=== PATIENT | female | born 1960 | race Caucasian/White ===

== ENCOUNTER → 2017-06-08 | Outpatient (CLI) | payer BC ==
[~2017-06-08] MED LIST: ASPI325T45 PO; CIPR-255 PO; MULT-506 PO; SERT100T PO
--- NOTE | 2017-06-11 07:43 | MAMMOGRAPHY REPORT ---
BILATERAL DIGITAL SCREENING MAMMOGRAM TOMOSYNTHESIS WITH CAD: 06/08/2017 CLINICAL HISTORY: Routine screening. Patient has no complaints. TECHNIQUE: Breast tomosynthesis in addition to standard 2D mammography was performed. Current study was also evaluated with a Computer Aided Detection (CAD) system. COMPARISON: Comparison is made to exams dated: 06/06/2016 mammogram, 06/03/2015 mammogram, 06/02/2014 m ammogram, 03/17/2013 mammogram, 03/08/2012 mammogram, and 03/07/2011 mammogram - [facility] [address]ter. BREAST COMPOSITION: The tissue of both breasts is heterogeneously dense, which may obscure small mas ses. FINDINGS: No suspicious masses, calcifications, or areas of architectural distortion are noted in ei ther breast. There has been no significant interval change compared to prior exams. A biopsy marker clip is again noted in the left central breast. Asymmetry in the right inferior breast is stable rachana ing back to at least the 2006 exam. IMPRESSION: ACR BI-RADS CATEGORY 2: BENIGN There is no mammographic evidence of malignancy. A 1 year screening mammogram is recommended. The pa tient will receive written notification of the results. Approximately 10% of breast cancers are not detected with mammography. A negative mammographic report should not delay biopsy if a clinically suggestive mass is present. Consuelo Oliveros M.D. /:06/08/2017 15:54:59 Jail Keeper: Bonnie Scott [facility] letter sent: Normal 1/2 BI-RADS Code: ACR BI-RADS Category 2: Benign
== END | disposition home or self-care (01) ==
LOC: C.MAMM 08:32
PROVIDERS: ATTEND Obstetrics & Gynecology
DX: Z12.31 Encounter for screening mammogram for malignant neoplasm of breast (principal)

== ENCOUNTER → 2017-07-06 | Outpatient (CLI) | payer BC ==
--- NOTE | 2017-07-06 13:19 | DIAGNOSTIC IMAGING REPORT ---
CT SCAN OF THE ABDOMEN AND PELVIS WITHOUT IV CONTRAST CLINICAL HISTORY: Left lower quadrant abdominal pain. COMPARISON STUDY: Abdominal CT dated 05/14/2016. TECHNIQUE: CT scan of the abdomen and pelvis is performed from the lung bases to the proximal femora. Images are reviewed in the axial, sagittal, and coronal planes. IV contrast was not administered for this examination as per the referring clinician. Note that the examination was performed in suboptimal fashion without oral and IV contrast. Automated dose control exposure was utilized. CT DOSE: 531.32 mGy.cm FINDINGS: Lung bases: The heart is normal in size and without pericardial effusion. The lung bases are clear noting minimal bibasilar atelectasis. There is a small hiatal hernia. Liver: The unenhanced liver is normal in size, contour, and attenuation. There is mild central intrahepatic biliary ductal dilatation, likely related to previous cholecystectomy. Gallbladder: Surgically absent noting clips in the gallbladder fossa. Spleen: Normal in size and attenuation. Pancreas: Unremarkable. Adrenal glands: Unremarkable. Kidneys: The unenhanced kidneys demonstrate mild cortical atrophy and are without hydronephrosis. There are no renal calculi identified. There is no evidence of contour deforming renal mass lesion. Abdominal vasculature: The abdominal aorta is normal in course and caliber. Bowel: The small bowel and colon are normal in course and caliber. There is moderate diverticulosis of the left colon. There is wall thickening with pericolonic infiltration and trace pericolonic fluid seen involving the proximal sigmoid colon in the left lower quadrant consistent with acute diverticulitis. There is no evidence of diverticular abscess. The appendix is well-visualized and normal. Peritoneum: No intraperitoneal free air or abdominal ascites is seen. There is a small fat-containing umbilical hernia. Lymphadenopathy: None. Pelvic viscera: The bladder and uterus are normal as visualized. A 1.5 cm cystic focus in the right ovary has not significantly change from prior studies and is of doubtful significance. No concerning adnexal lesion is seen. Calcified phleboliths are seen in the pelvis. Skeletal structures: No lytic or blastic lesions are seen. There is minimal lumbosacral spondylosis. IMPRESSION: 1. Suboptimal examination without oral and IV contrast. 2. Findings are consistent with acute diverticulitis of the sigmoid colon. There is no intraperitoneal free air and no evidence of diverticular abscess on this unenhanced examination. 3. Additional findings as above. Electronically signed by: Keenan Elena M.D. 07/06/2017 1:18 PM Dictated Date/Time: 07/06/2017 1:14 PM
== END | disposition home or self-care (01) ==
LOC: C.CTS 12:39
PROVIDERS: ATTEND Colon & Rectal Surgery
DX: K57.30 Diverticulosis of large intestine without perforation or abscess without bleeding (principal)

== ENCOUNTER → 2017-10-08 | Outpatient (CLI) | payer BC ==
[~2017-10-08] MED LIST changes: +AMOX1TAB43 PO; -ASPI325T45 PO; -CIPR-255 PO; +OPTIRAY 320 IV PRN
[2017-10-08 10:53] LABS: BASO % 0.4 %; BASO ABS # 0.02 K/uL (0-0.2); COMPLETE YES; HEMATOCRIT 39.4 % (37-47); IG% 0.2 %; LYMPH % 34.1 %; LYMPH ABS # 1.65 K/uL (1.2-3.4); MEAN CELL VOLUME 90.4 fL (80-100); MEAN CORPUSCULAR HGB CONC 34.3 g/dl (32-36); MEAN PLATELET VOLUME 9.5 fL (7.4-10.4); NEUT % 59.3 %; PLATELET COUNT 232 K/uL (130-400); RED BLOOD COUNT 4.36 M/uL (4.2-5.4); WHITE BLOOD COUNT 4.84 K/uL (4.8-10.8)
[2017-10-08 11:00] LABS: ALT/SGPT 20 U/L (12-78); BLOOD UREA NITROGEN 18 mg/dl (7-18); BUN/CREATININE RATIO 22.7 (10-20); CALCIUM 9.1 mg/dl (8.5-10.1); CARBON DIOXIDE 25 mmol/L (21-32); CHLORIDE 105 mmol/L (98-107); CREATININE 0.79 mg/dl (0.60-1.20); GLUCOSE 94 mg/dl (70-99); POTASSIUM 3.9 mmol/L (3.5-5.1); SODIUM 137 mmol/L (136-145)
[2017-10-08 11:01] LABS: PARTIAL THROMBOPLASTIN RATIO 1.2; PROTHROMBIN TIME (PATIENT) 10.8 SECONDS (9.0-12.0)
[2017-10-08 11:03] LABS: ALKALINE PHOSPHATASE 69 U/L (45-117); AST/SGOT 16 U/L (15-37)
--- NOTE | 2017-10-08 11:56 | DIAGNOSTIC IMAGING REPORT ---
CHEST CT WITH CONTRAST CT DOSE: 347.25 mGycm HISTORY: Left lower lobe groundglass opacities seen on comparison study. Follow-up exam. R91.8 Ground glass opacity present on imaging of lungFurther lele TECHNIQUE: Multiaxial CT images of the chest were performed following the intravenous administration of contrast. A dose lowering technique was utilized adhering to the principles of ALARA. COMPARISON: The abdomen and pelvis 09/05/2017, 07/06/2017 and 05/14/2016. CT chest 01/15/2011. FINDINGS: Thyroid is homogeneous. No pathologic adenopathy identified. Heart is normal in size without pericardial effusion. Thoracic aorta is normal in course and caliber without dissection or aneurysm. The opacified pulmonary arterial tree is unremarkable. There is no pneumothorax or pleural effusion. 2.4 x 1.4 cm groundglass opacity of the basal left lower lobe as seen on image 231 of series 4 is unchanged dating back to CT study 07/06/2017, however has progressed from 05/14/2016. Subtle areas of linear subsegmental opacities are present within this distribution as well as within additional sites within the bilateral lower lobes suggesting areas of mild pleural parenchymal scarring with atelectasis. No lobar airspace consolidations or additional groundglass opacity is identified. 3 mm solid pulmonary nodule seen within the apical posterior segment left upper lobe, image 57 of series 4. This is likely benign. 2 mm solid nodule right lower lobe as seen on image 204 of series 4. Central airways are patent. Prior cholecystectomy. No acute abnormality of the imaged upper abdomen. Soft tissues are unremarkable. The bones appear intact. IMPRESSION: 1. 2.4 x 1.4 cm groundglass opacity of the basal left lower lobe as above is unchanged dating back to 07/06/2017, however has progressed from study dated 05/14/2016. This suggests atelectasis with adjacent pleural parenchymal scarring. As a precautionary measure, a six-month follow-up CT chest may be considered. 2. No acute intrathoracic abnormality identified. Electronically signed by: Jonnie Robertson M.D. 10/08/2017 11:55 AM Dictated Date/Time: 10/08/2017 11:47 AM
== END | disposition home or self-care (01) ==
LOC: C.CTS 09:58
PROVIDERS: ATTEND Internal Medicine Critical Care Medicine
DX: R91.8 Other nonspecific abnormal finding of lung field (principal)

== ENCOUNTER 2017-10-17 11:03 | Observation (INO) | payer BC ==
[~2017-10-17] VITALS: Ht 165.1 cm; Wt 73.7 kg
[~2017-10-17 11:03] MED LIST changes: -ACETAMINOPHEN 325 MG TAB PO PRN; -ALUMINUM/MAGNESIUM/SIMETH (MAALOX MAX) 30 ML UDC PO PRN; -ENOXAPARIN 40 MG/0.4 ML SYR SC SCH; -FENTANYL CITRATE INJ 50 MCG/1 ML 2 ML VIAL IV ONE; -FENTANYL CITRATE INJ 50 MCG/1 ML 2 ML VIAL IV SCH; -LIDOCAINE 4% INH SOLN 4 ML BTL ONE; -LIDOCAINE HCL 2% LOCAL 50ML VIAL INFIL ONE; -MAGNESIUM HYDROXIDE SUSP 30 ML UDC PO PRN; -MIDAZOLAM HCL 5 MG/ML 1 ML VIAL IV ONE; -MIDAZOLAM HCL 5 MG/ML 1 ML VIAL IV SCH; -NURSING VERBAL MED ORDER ONE; -ONDANSETRON INJ 2 MG/ML 2 ML VIAL IV PRN; -ONDANSETRON INJ 2 MG/ML 2 ML VIAL ONE; -PANTOprazole SOD 40 MG TAB PO SCH; -POLYETHYLENE (MIRALAX) 17 GM PACK PO PRN; -SERT50TA PO; -ZOLPIDEM TARTRATE 5 MG TAB PO PRN
[2017-10-17] MEDS ORDERED: IV FLUIDS COMPLETED PRN ×2 (12:45→16:00)
[2017-10-17] MEDS ORDERED: POLYETHYLENE (MIRALAX) 17 GM PACK PO PRN (14:15)
[2017-10-17] MEDS ORDERED: ONDANSETRON INJ 2 MG/ML 2 ML VIAL IV PRN ×2 (14:15→19:45)
[2017-10-17] MEDS ORDERED: ACETAMINOPHEN 325 MG TAB PO PRN (14:15)
--- NOTE | 2017-10-17 14:15 | History and Physical ---
History & Physical Date of Service Oct 17, 2017. History & Physical [place] [address] History and Physical Patient Name: LEATHA MCKAY Admit Date: 10/17/17 [facility] Rec: [id number] Att Phy: Nasir Oliva MD Acct ID: [id number] [place] Phy: Chris Connelly M.D. Date: 1960 Fam Phy: Chris Connelly M.D. Age: 57 Location: [facility] Sex: F Room/Bed: CC: Fouzia Keating, Ronni aHrry MD, PhD Chris Connelly M.D. *NOTICE TO RECEIVING LIBERTARIAN/AGENCY This information is strictly Confidential and protected under [place] law. [place] law prohibits you from making any further disclosure of this information unless further disclosure is expressly permitted by the written consent of the person to whom it pertains or is authorized by law. A general authorization for the release of medical or other information is not sufficient for this purpose. Hospital accepts no responsibility if the information is made available to any other person, INCLUDING THE PATIENT. History & Physical Date & Time of Service: Oct 17, 2017 at 11:54 Chief Complaint: Ground Glass Opacity Present On Lung Imaging Primary Care Physician: Chris Connelly M.D. History of Present Illness Source: patient This is a 57 yo F with PMHx of pulmonary nodules, basal cell carcinoma lesion of the nose s/p removal, hx of diverticulitis in Aug 2017 who presented for routine bronchoscopy in same day surgery for evaluation of ground-glass nodule/ atypical infection of the LLL by Dr. Oliva on 10/17. Pt underwent the procedure with conscious sedation with fentanyl and versed and tolerated it without difficulty. While in the post op bay the pt developed chest pain in the lower substernal region, she began dry heaving and felt as if she were to pass out. She reports feeling numbness and tingling into her hands and feet at that time. The The patient developed episode of bradycardia into the 30s, and BP dropped acutely to 70/40. A code purple was called and the patient was taken acutely to the ER for intervention. The patient is being admitted directly to the hospitalist service at this time for observation. At this time the patient feels well, is fully awake and able to provide some history. She currently denies any chest pain at all. Pt reports she has had a chest pain like this in the past where she has been eating poorly. Pt notes she has taken a 1 week break from weight watchers and has been eating fast food like [employer] and stromboli, which she typically does not. Pt is not on any antacid medications. Of note, pt denies environmental exposures such as secondhand smoke, fumes, asbestos. notes they recently tested radon and the level in their home is 4x the limit so are planning on installing a pump. While in the ER vitals have remained normal. Labs are in process, including cardiac biomarkers EKG was reviewed and appears to be in NSR without evident block. Past Medical/Surgical History Medical Problems: (1) Chemosis of conjunctiva Status: Resolved (2) Corneal abrasion Status: Resolved (3) Diverticulitis Status: Resolved (4) Diverticulosis Colon (W/O Ment Of Hemorrhage) Status: Chronic Acute cholecystitis History of Cervical polyp Depression basal cell carcinoma of the nose History of dyspareunia History of vaginitis History of Menopausal symptoms Surgical Problems: (1) History of cholecystectomy Status: Resolved Left bronchoscopy and lavage Family History Heart Disease Hypertension Stroke Syndrome Breast Cancer Social History Smoking Status: Never Smoker Smokeless Tobacco Use: No Alcohol Use: socially Drug Use: none Marital Status: Housing status: lives with family Occupational Status: retired (meteorologist) Immunizations History of Influenza Vaccine: Yes Influenza Vaccine Date: Sep 23, 2012 History of Tetanus Vaccine?: Yes Tetanus Immunization Date: Nov 26, 2009 History of Pneumococcal: Unknown History of Hepatitis B Vaccine: Unknown Multi-Drug Resistant Organisms History of MDRO: No Allergies Coded Allergies: No Known Allergies (Unverified , 10/17/17) Home Medications Scheduled Multivitamin (Multivitamin), 1 TAB PO DAILY Sertraline Hcl (Zoloft), 50 MG PO DAILY Review of Systems Constitutional: No fever, No chills, No sweats, No weight loss, No fatigue Eyes: No worsening of vision, No redness ENT: No nasal symptoms, No sore throat, No tinnitus Respiratory: No cough, No sputum, No wheezing, No shortness of breath, No dyspnea on exertion Cardiovascular: No chest pain, No orthopnea, No edema, No palpitations Abdomen: No pain, No nausea, No vomiting, No diarrhea, No constipation Musculoskeletal: No joint pain, No swelling Neurologic: No weakness, No numbness/tingling Psychiatric: No depression symptoms, No anxiety Endocrine: No fatigue Integumentary: No rash, No itch Physical Exam Vital Signs Date Time Temp Pulse Resp B/P (MAP) Pulse Ox O2 Delivery O2 Flow Rate FiO2 10/17/17 10:45 36.6 39 14 72/38 99 Nasal Cannula 6 10/17/17 10:30 36.6 75 20 124/77 99 Nasal Cannula 4.0 10/17/17 10:15 36.6 74 20 119/76 98 Nasal Cannula 4.0 10/17/17 10:05 80 21 118/83 97 Nasal Cannula 4.0 10/17/17 10:00 71 22 111/72 98 Mask 8.0 10/17/17 09:55 72 14 127/83 94 Mask 8.0 10/17/17 09:50 67 17 95/81 98 Mask 8.0 10/17/17 09:34 75 21 106/66 100 Mask 8.0 10/17/17 09:21 36.4 77 18 115/66 97 Room Air 10/17/17 08:03 36.7 73 16 115/66 (82) 97 Room Air General Appearance: WD/WN, no apparent distress Head: normocephalic, atraumatic Eyes: PERRL, EOMI ENT: hearing grossly normal, pharynx normal Neck: no adenopathy, no JVD Respiratory/Chest: chest non-tender, lungs clear, no respiratory distress, no accessory muscle use, + pertinent finding (on 4L via NC with adequate sats) Cardiovascular: regular rate, rhythm, no JVD, no murmur, normal peripheral pulses Abdomen/GI: normal bowel sounds, non tender, soft, + pertinent finding (no epigastric pain ) Back: normal inspection, no CVA tenderness Extremities/Musculoskelatal: no calf tenderness, no pedal edema Neurologic/Psych: alert, normal mood/affect, oriented x 3 Skin: normal color, warm/dry Diagnostics Laboratory Results Results Past 24 Hours Test 10/17/17 08:26 10/17/17 10:49 10/17/17 11:02 10/17/17 11:41 Range/Units Bedside Glucose 99 70-90 mg/dl Bedside Hemoglobin 11.6 12.0-16.0 g/dl Bedside Hematocrit 34 37-47 % Bedside Blood Gas pH (LAB) 7.55 7.35-7.45 Bedside Blood Gas pCO2 (LAB) 25 35-46 mmHg Bedside Blood Gas pO2 (LAB) 134 80-95 mmHg Bedside Blood Gas HCO3 (LAB) 21 19-24 meq/L Bedside Blood Gas Total CO2 22 24-31 mEq/l Bedside Blood Gas Base Excess (LAB) -1.0 -9-1.8 meq/L Bedside Blood Gas O2 Saturation 99.0 90-95 % Bedside Sodium 140 135-144 mEq/L Bedside Potassium 3.9 3.3-5.0 mEq/L Creatine Kinase MB Ratio 0-3.0 Microbiology Results 10/17/17 Fungal Smear, Received Pending 10/17/17 Fungal Culture, Received Pending 10/17/17 Acid Fast Stain, Received Pending 10/17/17 Mycobacterial Culture, Received Pending 10/17/17 Gram Stain, Received Pending 10/17/17 Bronchoalveolar Lavage Culture, Received Pending Diagnostic Radiology CHEST ONE VIEW PORTABLE CLINICAL HISTORY: Chest pain post bronchoscopy. COMPARISON STUDY: Chest CT October 08, 2017. FINDINGS: Lung volumes are normal. No pneumothorax or pleural effusion is present. No consolidation is identified. Pulmonary vascularity is normal. Cardiomediastinal silhouette is normal. Mild left lower lung retrocardiac opacity at site of airspace opacity shown on exam of October 08, 2017 is present. IMPRESSION: 1. No pneumothorax. 2. Mild left lower lung airspace opacity, as shown on CT of October 08, 2017. Electronically signed by: Issa Molina M.D. 10/17/2017 11:58 AM Dictated Date/Time: 10/17/2017 11:53 AM Impression Assessment and Plan This is a 57 yo F with PMHx of pulmonary nodules, basal cell carcinoma lesion of the nose s/p removal, hx of diverticulitis in Aug 2017 who presented for routine bronchoscopy in same day surgery for evaluation of ground-glass nodule/ atypical infection of the LLL by Dr. Oliva on 10/17. Pt underwent the procedure with conscious sedation with fentanyl and versed and tolerated it without difficulty. While in the post op bay the pt developed chest pain in the lower substernal region, she began dry heaving and felt as if she were to pass out. She reports feeling numbness and tingling into her hands and feet at that time. The The patient developed episode of bradycardia into the 30s, and BP dropped acutely to 70/40. A code purple was called and the patient was taken acutely to the ER for intervention. The patient is being admitted directly to the hospitalist service at this time for observation. S/p episode of chest pain after Bronchoscopy and LLL lavage - Cardiac enzyme in process, trend x 3 total - EKG reviewed and showing NSR without acute signs of ischemia of ST wave inversions - cardiology has seen the patient - appreciate recs - Chest is nontender with palpation at time of my eval. - Etiology sounds vasovagal with bronchoscopy and tolerating the procedure itself without difficulty. Possible that this was bronchospasm as well. - Pt reports hx of eating poorly x 1 week and notes she has had similar episode of chest pain in the past when she does not eat well. - Will add antacid with protonix for possible indigestion - health eating habits will need to be encouraged prior to discharge. - CXR negative - no pneumothorax. LLL ground glass lung nodules - s/p bronch: lavage of the left lobe only - cytology and microbiology sent as there is concern for malignancy with basal cell carcinoma lesion of the nose hx. - CT scan revealed these nodules incidentally when pt was evaluated for diverticulitis in June and August 2017. Prior imaging did not have nodularities. - Pulmonology to follow up with results as an outpatient Depression - Continue Zoloft 75 mg DVT ppx: lovenox 40 mg subq CODE STATUS: FULL CODE Disposition: From home, lives with Level of Care Telemetry Resuscitation Status FULL RESUSCITATION VTE Prophylaxis VTE Risk Assessment Done? Y/N: Yes Risk Level: High Given or contraindicated: Enoxaparin (Lovenox)SQ, Treatment not indicated
[2017-10-17 14:36] VITALS: O2SAT 100; Ht 165.1 cm; Wt 73.7 kg
--- NOTE | 2017-10-17 14:54 | CARDIOLOGY CONSULTATION ---
DATE OF CONSULTATION: 10/17/2017 TIME: 14:00 p.m. CONSULTING PHYSICIAN: Dr. Oliva. REASON FOR CONSULTATION: Bradycardia and epigastric pain. HISTORY OF PRESENT ILLNESS: Mr. Wilks is a pleasant 57-year-old female with a history of pulmonary nodule, who underwent bronchoscopy earlier today with Dr. Oliva. Twenty or thirty minutes following the bronchoscopy, she started complaining of epigastric pain. The epigastric pain was quite severe. She felt near syncopal and also had an episode of nausea, but did not vomit. At some point, it is reported that her heart rate went into the 30s. There was some concern for heart block; however, there is no telemetry strip available to demonstrate this. Available telemetry strips demonstrated normal sinus rhythm without significant bradycardia. The epigastric pain then waxed and waned. A lisandra purple was called for a rapid response to evaluate her. She was then sent to the Emergency Department, at which point I was notified to see her there. While in the Emergency Department, she once again had another episode of severe epigastric pain, which then spontaneously resolved. She states that she has had epigastric pain in the past, once in a blue llanos, which appeared to be triggered by certain foods that she had eaten. She admits that she has lost 75 pounds since November of 2016 intentionally by dieting and exercising. For the past couple days, however, she has been eating foods with fat and grease content. She has been eating [employer] and last night had eaten [place]. She denies any chest pain, shortness of breath, syncope, palpitations, edema, fevers, melena, hematochezia, hematuria, or vomiting. She does have the feeling of pins and needles in her forearms and lower extremities, below the knees bilaterally. She exercises daily. She uses an elliptical machine for 30-45 minutes a day and also walks her dog and on certain days, performs light weights. With these activities, she denies any chest discomfort, epigastric pain, or shortness of breath. REVIEW OF SYSTEMS: As above. Review of systems is otherwise negative/unremarkable. PAST MEDICAL HISTORY: 1. Pulmonary nodule, status post bronchoscopy earlier today. 2. Status post cholecystectomy. 3. Diverticulosis with diverticulitis in the past. 4. Depression. 5. Basal cell carcinoma. HOME MEDICATIONS: Include: 1. Aspirin 325 mg daily, however, she states that she typically forgets to take this medication. 2. Zoloft 100 mg daily. 3. Multivitamin. 4. Metamucil. ALLERGIES: No known drug allergies. SOCIAL HISTORY: Occasional alcohol. No tobacco or drug abuse. She is and lives with her . She has no children. She is a retired ____. She is unaccompanied in the Emergency Department. FAMILY HISTORY: Mother of stroke. Father is alive at the age of 99. PHYSICAL EXAMINATION: VITAL SIGNS: Temperature 36.4 degrees, heart rate 68 beats per minute, respiratory rate 18, blood pressure 100/76 mmHg, and oxygen saturation 100% on room air. Weight 71.5 kilograms as per patient. GENERAL: No acute distress. She is alert and oriented. HEENT: Anicteric sclerae. NECK: No appreciable JVD. No bruits. Normal carotid upstrokes bilaterally. CARDIAC EXAMINATION: PMI was nondisplaced. There was no ventricular heave. Regular, normal S1 and S2. No audible murmurs, rubs or gallops. LUNGS: Clear to auscultation bilaterally without wheezes, rales or rhonchi. ABDOMEN: Soft and nondistended. There is significant tenderness in the epigastric area, reproducing her epigastric pain as described above. Normal active bowel sounds. No bruits. EXTREMITIES: No cyanosis or pitting edema. 2+ radial pulses bilaterally. 2+ dorsalis pedis pulses bilaterally. No palpable cords. PSYCHIATRIC: Affect appears appropriate. ECG personally reviewed. ECG 10/17/2017 at 10:58 a.m. demonstrated normal sinus rhythm at 71 beats per minute. Normal ECG. Telemetry strips reviewed as noted above. LABORATORY DATA: Point of care labs from 10/17/2017, sodium 140, potassium 3.9, and glucose 99. ABG, pH 7.55, pCO2 of 25, and pO2 of 134. Chest x-ray performed today demonstrated no pneumothorax as per radiology. Mild left lower lung airspace opacity as shown on CT scan, 10/08/2017 per radiology. Most recent echo was on 01/16/2011, which reported LV systolic function of 60%-65% with normal wall motion. No significant valvular abnormalities were described. ASSESSMENT AND PLAN: 1. Bradycardia: There was reported bradycardia with heart rates in the 30s with concern of complete heart block; however, there are no telemetry strips available at this time that demonstrate this. This apparently occurred with epigastric pain and nausea, which could represent a vagal response. Whether or not complete heart block occurred is not clear, however that it would not be surprising if she had bradycardia during that episode. She is currently in normal sinus rhythm with an appropriate heart rate. Can continue telemetry for now; however, vasovagal reaction appears to be the most likely explanation for transient bradycardia. 2. Epigastric pain: Does not appear to be cardiac in etiology. She is quite tender in that location and has had similar symptoms in the past; however, not so severe, with certain foods. There is a concern for GI etiology. Further evaluation as per primary service. Echocardiogram can be done; however, this does not appear to be a chest pain or angina. Serial troponins can be evaluated; however, ischemic heart disease is not likely playing a role. 3. Near syncope: Could have been secondary to her extreme pain and increased vagal tone. Echocardiogram ordered. Disposition: Dr. Oliva is arranging for direct admission from the ER with Dr. Marshall. The patient's care has been discussed with both Dr. Oliva and Dr. Marshall of the admitting hospitalist service. Please call for any further questions or concerns from a cardiac perspective. Otherwise, cardiology will sign off at this time, pending echo findings. Thank for allowing me to participate in the care of Mr. Wilks. Sincerely,
[2017-10-17] MEDS ORDERED: MAGNESIUM HYDROXIDE SUSP 30 ML UDC PO PRN (15:45)
[2017-10-17] MEDS ORDERED: ALUMINUM/MAGNESIUM/SIMETH (MAALOX MAX) 30 ML UDC PO PRN (15:45)
[2017-10-17] MEDS ORDERED: ZOLPIDEM TARTRATE 5 MG TAB PO PRN (15:45)
[2017-10-17 16:00] VITALS: BP 111/70; PULSE 65; TEMP 36.7; O2SAT 98
--- NOTE | 2017-10-17 16:36 | ECHOCARDIOGRAM REPORT ---
*NOTICE TO RECEIVING DEMOCRAT AGENCY This information is strictly Confidential and protected under [place] law. [place] law prohibits you from making any further disclosure of this information unless further disclosure is expressly permitted by the written consent of the person to whom it pertains or is authorized by law. A general authorization for the release of medical or other information is not sufficient for this purpose. Hospital accepts no responsibility if the information is made available to any other person, INCLUDING THE PATIENT. Interpretation Summary * Name: LEATHA MCKAY Study Date: 10/17/2017 02:49 PM BP: 100/76 mmHg * Patient Location: [facility] HR: 68 * : 1960 (M/d/yyyy) Gender: Female Height: 65 in * Age: 57 yrs Ethnicity: CA Weight: 156 lb * Ordering Physician: Jesse Patton * Performed By: Akosua Sanders RDCS * * Reason For Study: Chest Pain * BSA: 1.8 m2 * -- Conclusions -- * 1. Normal LV size. Borderline concentric LVH. * 2. Normal LV systolic function. LVEF 60-65%. No regional wall motion abnormalities. * 3. Normal RV size and function. * 4. Mild mitral regurgitation. * 5. Normal estimated PA and RA pressures. * 6. Compared with prior study on 01/16/2011: No significant changes. Procedure Details * A complete two-dimensional transthoracic echocardiogram was performed (2D, M-mode, Doppler and color flow Doppler). Left Ventricle * The left ventricle is grossly normal size. * There is borderline concentric left ventricular hypertrophy. * Ejection Fraction = 60-65%. * No regional wall motion abnormalities noted. Right Ventricle * The right ventricle is grossly normal size. * The right ventricular systolic function is normal as assessed by tricuspid annular plane systolic excursion (TAPSE) (normal >1.5 cm). Atria * Borderline left atrial enlargement. * Borderline right atrial enlargement. Mitral Valve * The mitral valve is grossly normal. * There is no mitral valve stenosis. * There is mild mitral regurgitation. Tricuspid Valve * The tricuspid valve is not well visualized, but is grossly normal. * There is no tricuspid stenosis. * Significant tricuspid regurgitation is absent. Aortic Valve * The aortic valve opens well. * The aortic valve is trileaflet. * No hemodynamically significant valvular aortic stenosis. * Trace aortic regurgitation. Pulmonic Valve * The pulmonary valve is inadequately visualized, but the Doppler data is adequate for interpretation. * Pulmonic stenosis is absent. * There is no significant pulmonary regurgitation. Great Vessels * The aortic root and proximal ascending aorta are normal sized. Pericardium/Pleural * There is no pericardial effusion. Great Vessels * Normal inferior vena cava size and collapsability with sniff indicates a normal right atrial pressure of 3 mmHg MMode 2D Measurements and Calculations IVSd 0.98 cm IVSs 1.4 cm LVIDd 4.5 cm LVIDs 2.6 cm LVPWd 1.0 cm LVPWs 2.0 cm IVS/LVPW 0.98 FS 41.4 % EDV(Teich) 92.8 ml ESV(Teich) 25.6 ml EF(Teich) 72.4 % EDV(cubed) 91.6 ml ESV(cubed) 18.4 ml EF(cubed) 79.9 % % IVS thick 45.1 % % LVPW thick 96.2 % LV mass(C)d 152.5 grams LV mass(C)dI 85.7 grams/m\S\2 LV mass(C)s 168.7 grams LV mass(C)sI 94.8 grams/m\S\2 SV(Teich) 67.2 ml SI(Teich) 37.8 ml/m\S\2 SV(cubed) 73.1 ml SI(cubed) 41.1 ml/m\S\2 Ao root diam 2.8 cm Ao root area 6.0 cm\S\2 ACS 2.1 cm LA dimension 3.8 cm LA/Ao 1.4 LVAd ap4 24.7 cm\S\2 LVLd ap4 7.0 cm EDV(MOD-sp4) 72.3 ml EDV(sp4-el) 73.4 ml LVAs ap4 10.9 cm\S\2 LVLs ap4 5.3 cm ESV(MOD-sp4) 20.1 ml ESV(sp4-el) 18.8 ml EF(MOD-sp4) 72.2 % EF(sp4-el) 74.3 % LVAd ap2 24.0 cm\S\2 LVLd ap2 7.6 cm EDV(MOD-sp2) 66.5 ml EDV(sp2-el) 64.4 ml LVAs ap2 12.9 cm\S\2 LVLs ap2 6.1 cm ESV(MOD-sp2) 25.2 ml ESV(sp2-el) 23.0 ml EF(MOD-sp2) 62.1 % EF(sp2-el) 64.2 % LVLd %diff 7.4 % EDV(MOD-bp) 71.9 ml LVLs %diff 12.5 % ESV(MOD-bp) 23.9 ml EF(MOD-bp) 66.7 % SV(MOD-sp4) 52.1 ml SI(MOD-sp4) 29.3 ml/m\S\2 SV(MOD-sp2) 41.3 ml SI(MOD-sp2) 23.2 ml/m\S\2 SV(MOD-bp) 48.0 ml SI(MOD-bp) 26.9 ml/m\S\2 SV(sp4-el) 54.5 ml SI(sp4-el) 30.6 ml/m\S\2 SV(sp2-el) 41.4 ml SI(sp2-el) 23.2 ml/m\S\2 Doppler Measurements and Calculations MV E max indigo 80.9 cm/sec MV A max indigo 61.5 cm/sec MV E/A 1.3 MV dec time 0.31 sec Ao V2 max 163.7 cm/sec Ao max PG 10.7 mmHg Ao max PG (full) 4.8 mmHg AI max indigo 225.4 cm/sec AI max PG 20.3 mmHg AI dec slope 86.2 cm/sec\S\2 AI P1/2t 766.1 msec LV V1 max PG 5.9 mmHg LV V1 max 121.9 cm/sec MR max indigo 545.5 cm/sec MR max PG 119.0 mmHg MR mean indigo 408.8 cm/sec MR mean PG 75.8 mmHg MR VTI 187.4 cm PA V2 max 95.8 cm/sec PA max PG 3.7 mmHg TR max indigo 246.7 cm/sec
[2017-10-17 17:01] LABS: PARTIAL THROMBOPLASTIN RATIO 1.1; PROTHROMBIN TIME (PATIENT) 10.7 SECONDS (9.0-12.0)
[2017-10-17] MEDS ORDERED: OPTIRAY 320 IV PRN (17:30)
[2017-10-17] MEDS ORDERED: ENOXAPARIN 40 MG/0.4 ML SYR SC SCH (18:00)
[2017-10-17 18:15] LABS: BASO % 0.3 %; BASO ABS # 0.02 K/uL (0-0.2); COMPLETE YES; HEMATOCRIT 39.1 % (37-47); LYMPH % 38.8 %; LYMPH ABS # 2.35 K/uL (1.2-3.4); MEAN CELL VOLUME 92.9 fL (80-100); MEAN CORPUSCULAR HEMOGLOBIN 31.1 pg (25-34); MEAN CORPUSCULAR HGB CONC 33.5 g/dl (32-36); MEAN PLATELET VOLUME 9.9 fL (7.4-10.4); NEUT % 55.9 %; PLATELET COUNT 234 K/uL (130-400); RED BLOOD COUNT 4.21 M/uL (4.2-5.4); WHITE BLOOD COUNT 6.06 K/uL (4.8-10.8)
[2017-10-17 18:37] LABS: ALT/SGPT 26 U/L (12-78); AMYLASE 103 U/L (25-115); AST/SGOT 21 U/L (15-37); BLOOD UREA NITROGEN 13 mg/dl (7-18); CALCIUM 8.6 mg/dl (8.5-10.1); CARBON DIOXIDE 28 mmol/L (21-32); CHLORIDE 109 mmol/L (98-107); CHOLESTEROL 190 mg/dl (0-200); CREATININE 0.93 mg/dl (0.60-1.20); GLUCOSE 107 mg/dl (70-99); POTASSIUM 3.9 mmol/L (3.5-5.1); SODIUM 141 mmol/L (136-145)
[2017-10-17 18:42] LABS: CKMB/CK RATIO 2.9 (0-3.0)
[2017-10-17 18:43] LABS: ALB/GLOB RATIO 0.9 (0.9-2); ALKALINE PHOSPHATASE 58 U/L (45-117); HDL CHOLESTEROL 93 mg/dl; LDL CHOLESTEROL CALCULATED 85 mg/dl; TRIGLYCERIDES 62 mg/dl (0-150); VERY LOW DENSITY LIPOPROT CALC 12 mg/dl
[2017-10-17 19:40] VITALS: BP 107/68; PULSE 64; TEMP 36.9; O2SAT 97
--- NOTE | 2017-10-17 19:45 | DIAGNOSTIC IMAGING REPORT ---
CT ANGIOGRAM OF THE CHEST CLINICAL HISTORY: Atypical chest pain. Reported history of recent bronchoscopy. COMPARISON STUDY: Chest x-ray dated 10/17/2017. Chest CT scans dated 10/08/2017 and 01/15/2011. TECHNIQUE: Following the IV administration of 90 cc of Optiray 320, CT angiogram of the chest was performed from the upper abdomen to the thoracic inlet utilizing the pulmonary embolus protocol. Images are reviewed in the axial, sagittal, and coronal planes. 3-D MIPS images are created and assessed. IV contrast was administered without complication. A dose lowering technique was utilized adhering to the principles of ALARA. CT DOSE: 312.67 mGy.cm FINDINGS: Thyroid: Imaged portions of the thyroid gland are normal in size and attenuation. Thoracic aorta: The thoracic aorta is normal in caliber and demonstrates standard 3-vessel arch anatomy. No dissection is seen. Pulmonary vasculature: The pulmonary trunk is normal in caliber. There are no filling defects identified in main, lobar, or segmental pulmonary branches to suggest pulmonary embolus. Heart: The heart is mildly enlarged and without pericardial effusion. Lungs and pleural spaces: There is patchy airspace consolidation at the left lung base. This partially obscures the opacities seen on the recent 10/08/2017 examination. No pleural effusion is seen. No pneumothorax is identified. The trachea and central airways are clear. Minimal atelectasis is seen at the right lung base. The trachea and central airways are clear. Mediastinum: There is no mediastinal lymphadenopathy. Isis: Clear. Axillae: There is no axillary lymphadenopathy. Upper abdomen: There is a small fat-containing ventral hernia in the upper abdomen. Partially visualized upper abdominal viscera is within normal limits. Skeletal structures: The skeletal structures appear osteopenic. No lytic or blastic bony lesions are seen. IMPRESSION: 1. There is no evidence of pulmonary embolus in the main, lobar, or segmental pulmonary arteries. 2. No pneumothorax is identified post procedure. 3. There is patchy airspace consolidation at the left lung base, new from previous. This could represent hemorrhage/postbiopsy change versus an infectious/inflammatory pneumonitis. Clinical correlation required. 4. Left basilar consolidation partially obscures the left basilar opacity of interest seen on the 10/08/2017 examination. This is likely unchanged from previous. See report from 10/08/2017 for detailed findings. 5. The right lung appears clear. 6. Mild cardiac enlargement. Electronically signed by: Keenan Elena M.D. 10/17/2017 7:43 PM Dictated Date/Time: 10/17/2017 7:37 PM
[2017-10-17 20:00] VITALS: O2SAT 98
[2017-10-17] MEDS: ACETAMINOPHEN 325 MG TAB PO PRN (23:32)
[2017-10-17 23:51] VITALS: BP 114/71; PULSE 76; TEMP 36.7; O2SAT 97
[2017-10-18 02:09] LABS: CKMB/CK RATIO 3.2 (0-3.0)
[2017-10-18 03:30] VITALS: BP 111/65; PULSE 64; TEMP 36.8; O2SAT 96
[2017-10-18 06:19] LABS: HEMATOCRIT 36.3 % (37-47); MEAN CELL VOLUME 92.1 fL (80-100); MEAN CORPUSCULAR HGB CONC 33.6 g/dl (32-36); MEAN PLATELET VOLUME 9.9 fL (7.4-10.4); PLATELET COUNT 203 K/uL (130-400); RED BLOOD COUNT 3.94 M/uL (4.2-5.4); WHITE BLOOD COUNT 4.19 K/uL (4.8-10.8)
[2017-10-18 06:46] LABS: BUN/CREATININE RATIO 16.4 (10-20); CALCIUM 8.6 mg/dl (8.5-10.1); CREATININE 0.8 mg/dl (0.60-1.20); POTASSIUM 4.1 mmol/L (3.5-5.1)
[2017-10-18 06:49] LABS: CHOLESTEROL/HDL RATIO 1.9
[2017-10-18 07:17] LABS: BASO % 0.7 %; BASO ABS # 0.03 K/uL (0-0.2); COMPLETE YES; EOS % 3.1 %; LYMPH % 52.5 %; MONO % 6.9 %; NEUT % 36.8 %
[2017-10-18 07:26] VITALS: BP 95/80; PULSE 73; TEMP 36.9; O2SAT 97
[2017-10-18] MEDS: ACETAMINOPHEN 325 MG TAB PO PRN (08:16)
[2017-10-18] MEDS ORDERED: SERT50TA PO (08:27)
--- NOTE | 2017-10-18 08:32 | Discharge Instructions ---
Discharge Instructions Date of Service Oct 18, 2017. Admission Reason for Admission: Chest Pain, S/P Bronchoscopy W/ Bronchoalveolar Discharge Discharge Diagnosis / Problem: Bronchospasm and Vasovagal episode after Bronchoscopy Discharge Goals Goal(s): Decrease discomfort, Improve function, Increase independence, Improve disease control Activity Recommendations Activity Limitations: resume your previous activity Lifting Limitations: none Exercise/Sports Limitations: none May Resume Sexual Activity: when tolerated Shower/Bathe: no limitations Driving or Machine Use: no limitations . Instructions / Follow-Up Instructions / Follow-Up You were admitted to [facility] with acute onset of chest pain after bronchoscopy and diagnosed with bronchospasm as well as vasal vagal episode which caused your blood pressure and heart rate to drop. This resolved quickly with supportive care. You were evaluated by Cardiology. Cardiac enzymes were negative. Imaging studies including an echocardiogram ( ultrasound of the heart) was completed and was also normal. Medications: Continue taking your medications as above. Appointments: Follow up with pulmonology within 1-2 weeks for bronchoscopy pathology and cytology results. Current Hospital Diet Patient's current hospital diet: Regular Diet Discharge Diet Recommended Diet: Regular Diet Pending Studies Studies pending at discharge: no Laboratory Results Lipid Panel Test 10/18/17 05:31 Range/Units Triglycerides Level 47 0-150 mg/dl Cholesterol Level 156 0-200 mg/dl HDL Cholesterol 81 mg/dl Cholesterol/HDL Ratio 1.9 LDL Cholesterol, Calculated 66 mg/dl Medical Emergencies . Who to Call and When: Medical Emergencies: If at any time you feel your situation is an emergency, please call 911 immediately. . Non-Emergent Contact Non-Emergency issues call your: Primary Care Provider Call Non-Emergent contact if: you have a fever, temperature is above 100.5, your pain is not controlled, your pain is worsening, your pain is unusual for you, your pain is concerning you, you have any medication questions other concerns with your health. Call 911 or go directly to the Emergency Department if you experience any of the following: Chest pain, chest tightness, shortness of breath, abdominal pain , lightheadedness, dizziness, gastrointestinal bleeding, or have any other concerns regarding your health. . Past History Medical & Surgical History: (1) S/P bronchoscopy with bronchoalveolar lavage (2) Chest pain . "Provider Documentation" section prepared by Charito Keating. . VTE Core Measure Inpt VTE Proph given/why not?: Treatment not indicated
[2017-10-18] MEDS ORDERED: SERTRALINE HCL 50 MG TAB PO SCH (09:00)
[2017-10-18] MEDS ORDERED: PANTOprazole SOD 40 MG TAB PO SCH (09:00)
[2017-10-18] MEDS ORDERED: MULTIVITAMIN TAB PO SCH (09:00)
[2017-10-18 10:32] VITALS: BP 95/80; PULSE 73; TEMP 36.9; O2SAT 97
--- NOTE | 2017-10-18 11:05 | Discharge Summary ---
Discharge Summary Date of Service Oct 18, 2017. Discharge Summary Admission Date: Oct 17, 2017 at 14:13 Discharge Date: Oct 18, 2017 Discharge Disposition: Home Principal Diagnosis: Vasovagal episode, bronchospasm s/p bronchoscopy Problems/Secondary Diagnoses: (1) Diverticulosis Colon (W/O Ment Of Hemorrhage) Status: Chronic Pulmonary nodules basal cell carcinoma lesion of the nose s/p removal hx of diverticulitis in Aug 2017 Immunizations: Have You Had Influenza Vaccine: Yes Influenza Vaccine Date: Sep 23, 2012 History of Tetanus Vaccine?: Yes Tetanus Immunization Date: Nov 26, 2009 History of Pneumococcal: Unknown History of Hepatitis B Vaccine: Unknown Procedures: CT ANGIOGRAM OF THE CHEST 10/17/17 IMPRESSION: 1. There is no evidence of pulmonary embolus in the main, lobar, or segmental pulmonary arteries. 2. No pneumothorax is identified post procedure. 3. There is patchy airspace consolidation at the left lung base, new from previous. This could represent hemorrhage/postbiopsy change versus an infectious/inflammatory pneumonitis. Clinical correlation required. 4. Left basilar consolidation partially obscures the left basilar opacity of interest seen on the 10/08/2017 examination. This is likely unchanged from previous. See report from 10/08/2017 for detailed findings. 5. The right lung appears clear. 6. Mild cardiac enlargement. Echocardiogram * -- Conclusions -- * 1. Normal LV size. Borderline concentric LVH. * 2. Normal LV systolic function. LVEF 60-65%. No regional wall motion abnormalities. * 3. Normal RV size and function. * 4. Mild mitral regurgitation. * 5. Normal estimated PA and RA pressures. * 6. Compared with prior study on 01/16/2011: No significant changes. Consultations: Cardiology Medication Reconciliation Continued Medications: Multivitamin (Multivitamin) Tab 1 TAB PO DAILY, TAB Sertraline Hcl (Zoloft) 50 Mg Tab 75 MG PO DAILY, TAB Discharge Exam The patient was seen and examined this morning. Pt reports doing very well, she has not had recurrence of CP since yesterdays episode. She denies any difficulty with breathing, SOB, ROUSE and has been ambulating about the room without difficulty. She has a mild headache but reports likely from being here with noise and not sleeping great in the hospital. Pt ate breakfast without difficulty, urinating well, and had a BM prior to bronch yesterday. She denies fever, chills or sweats. ROS: 10 Point ROS reviewed and otherwise negative. Physical Exam: General Appearance: WD/WN, no apparent distress Head: normocephalic, atraumatic Eyes: PERRL, EOMI ENT: hearing grossly normal, pharynx normal Neck: no adenopathy, no JVD Respiratory/Chest: chest non-tender, lungs clear, no respiratory distress, no accessory muscle use, + pertinent finding (on room air with adequate sats) Cardiovascular: regular rate, rhythm, no JVD, no murmur, normal peripheral pulses Abdomen/GI: normal bowel sounds, non tender, soft, + pertinent finding (no epigastric pain ) Back: normal inspection, no CVA tenderness Extremities/Musculoskelatal: no calf tenderness, no pedal edema Neurologic/Psych: alert, normal mood/affect, oriented x 3 Skin: normal color, warm/dry Hospital Course History of Present Illness Source: patient This is a 57 yo F with PMHx of pulmonary nodules, basal cell carcinoma lesion of the nose s/p removal, hx of diverticulitis in Aug 2017 who presented for routine bronchoscopy in same day surgery for evaluation of ground-glass nodule/ atypical infection of the LLL by Dr. Oliva on 10/17. Pt underwent the procedure with conscious sedation with fentanyl and versed and tolerated it without difficulty. While in the post op bay the pt developed chest pain in the lower substernal region, she began dry heaving and felt as if she were to pass out. She reports feeling numbness and tingling into her hands and feet at that time. The The patient developed episode of bradycardia into the 30s, and BP dropped acutely to 70/40. A code purple was called and the patient was taken acutely to the ER for intervention. The patient is being admitted directly to the hospitalist service at this time for observation. At this time the patient feels well, is fully awake and able to provide some history. She currently denies any chest pain at all. Pt reports she has had a chest pain like this in the past where she has been eating poorly. Pt notes she has taken a 1 week break from weight watchers and has been eating fast food like [employer] and stromboli, which she typically does not. Pt is not on any antacid medications. Of note, pt denies environmental exposures such as secondhand smoke, fumes, asbestos. notes they recently tested radon and the level in their home is 4x the limit so are planning on installing a pump. While in the ER vitals have remained normal. Labs are in process, including cardiac biomarkers EKG was reviewed and appears to be in NSR without evident block. Physical Exam General Appearance: WD/WN, no apparent distress Head: normocephalic, atraumatic Eyes: PERRL, EOMI ENT: hearing grossly normal, pharynx normal Neck: no adenopathy, no JVD Respiratory/Chest: chest non-tender, lungs clear, no respiratory distress, no accessory muscle use, + pertinent finding (on 4L via NC with adequate sats) Cardiovascular: regular rate, rhythm, no JVD, no murmur, normal peripheral pulses Abdomen/GI: normal bowel sounds, non tender, soft, + pertinent finding (no epigastric pain ) Back: normal inspection, no CVA tenderness Extremities/Musculoskelatal: no calf tenderness, no pedal edema Neurologic/Psych: alert, normal mood/affect, oriented x 3 Skin: normal color, warm/dry Hospital Course: This is a 57 yo F with PMHx of pulmonary nodules, basal cell carcinoma lesion of the nose s/p removal, hx of diverticulitis in Aug 2017 who presented for routine bronchoscopy in same day surgery for evaluation of ground-glass nodule/ atypical infection of the LLL by Dr. Oliva on 10/17. Pt underwent the procedure with conscious sedation with fentanyl and versed and tolerated it without difficulty. While in the post op bay the pt developed chest pain in the lower substernal region, she began dry heaving and felt as if she were to pass out. She reports feeling numbness and tingling into her hands and feet at that time. The The patient developed episode of bradycardia into the 30s, and BP dropped acutely to 70/40. A code purple was called and the patient was taken acutely to the ER for intervention. The patient is being admitted directly to the hospitalist service at this time for observation. S/p episode of chest pain after Bronchoscopy and LLL lavage Due to bronchospasm and vasovagal episode - Cardiac enzymes negative x 3 - ECHO completed and normal * -- Conclusions -- * 1. Normal LV size. Borderline concentric LVH. * 2. Normal LV systolic function. LVEF 60-65%. No regional wall motion abnormalities. * 3. Normal RV size and function. * 4. Mild mitral regurgitation. * 5. Normal estimated PA and RA pressures. * 6. Compared with prior study on 01/16/2011: No significant changes. - Cardiology on board - Chest is nontender with palpation - Pt reports hx of eating poorly x 1 week and notes she has had similar episode of chest pain in the past when she does not eat well. - Will add antacid with protonix while inpatient- pt plans to resume weight watchers diet so no need for antacid at this time. - CXR negative - no pneumothorax. - CTA chest reviewed and also negative. LLL ground glass lung nodules - s/p bronch: lavage of the left lobe only - cytology and microbiology sent as there is concern for malignancy with basal cell carcinoma lesion of the nose hx. - CT scan revealed these nodules incidentally when pt was evaluated for diverticulitis in June and August 2017. Prior imaging did not have nodularities. - Pulmonology to follow up with results as an outpatient- pt has apt set up on Oct 29 Depression - Continue Zoloft 75 mg DVT ppx: lovenox 40 mg subq CODE STATUS: FULL CODE Disposition: From home, lives with , discharge to home today PA Physician Supervision Note: I interviewed and examined the patient. Discussed with Fouzia Keating PAC and agree with findings and plan as documented in the note. Any exceptions or clarifications are listed here: None Patient has done well overnight since being observed status post bronchoscopy she has had no further chest pain vitals are stable and reviewed Cardiac exam is regular with no wheezes or crackles patient will be discharged follow-up with Dr. Oliva Documented By: Nasir Fragoso Total Time Spent: Greater than 30 minutes This includes examination of the patient, discharge planning, medication reconciliation, and communication with other providers. Discharge Instructions Please refer to the electronic Patient Visit Report (Discharge Instructions) for additional information. Follow-Up Follow up with Pulmonology within 1-2 weeks as already scheduled. Additional Copies To Chris Connelly M.D.
== END 2017-10-18 11:00 | disposition home or self-care (01) ==
LOC: EDBD 11:03 → EDSEX 11:03 → C.EDA 11:05 → C.2E 14:13 → ENRESERV 14:17
PROVIDERS: ADMIT Hospitalist; ATTEND Hospitalist
DX: R55 Syncope and collapse (principal); K57.30 Diverticulosis of large intestine without perforation or abscess without bleeding; R91.8 Other nonspecific abnormal finding of lung field; F32.9 Major depressive disorder, single episode, unspecified; Z82.3 Family history of stroke; Z82.49 Family history of ischemic heart disease and other diseases of the circulatory system; Z80.3 Family history of malignant neoplasm of breast; Z79.899 Other long term (current) drug therapy

== ENCOUNTER → 2017-10-17 | Day surgery (SDC) | payer BC ==
[2017-10-17] VITALS (10 sets, daily range): BP systolic 72–127; BP diastolic 38–83; PULSE 39–80; TEMP 36.4–36.7; O2SAT 94–100; Ht 165.1 cm; Wt 71.0 kg
[~2017-10-17] VITALS: Ht 165.1 cm; Wt 71.0 kg
[~2017-10-17] MED LIST changes: +ACETAMINOPHEN 325 MG TAB PO PRN; +ALUMINUM/MAGNESIUM/SIMETH (MAALOX MAX) 30 ML UDC PO PRN; +ENOXAPARIN 40 MG/0.4 ML SYR SC SCH; +FENTANYL CITRATE INJ 50 MCG/1 ML 2 ML VIAL IV ONE; +FENTANYL CITRATE INJ 50 MCG/1 ML 2 ML VIAL IV SCH; +LIDOCAINE 4% INH SOLN 4 ML BTL ONE; +LIDOCAINE HCL 2% LOCAL 50ML VIAL INFIL ONE; +MAGNESIUM HYDROXIDE SUSP 30 ML UDC PO PRN; +MIDAZOLAM HCL 5 MG/ML 1 ML VIAL IV ONE; +MIDAZOLAM HCL 5 MG/ML 1 ML VIAL IV SCH; +NURSING VERBAL MED ORDER ONE; +ONDANSETRON INJ 2 MG/ML 2 ML VIAL IV PRN; +ONDANSETRON INJ 2 MG/ML 2 ML VIAL ONE; -OPTIRAY 320 IV PRN; +PANTOprazole SOD 40 MG TAB PO SCH; +POLYETHYLENE (MIRALAX) 17 GM PACK PO PRN; +SERT50TA PO; +ZOLPIDEM TARTRATE 5 MG TAB PO PRN
--- NOTE | 2017-10-17 09:03 | History and Physical ---
History & Physical Date of Service Oct 17, 2017. History & Physical 56-year-old female here for evaluation of ground-glass nodule/atypical infection of the LLL: Patient is a 56 yo female with PmHx: acute cholecystitis, cervical polyp, & basal cell carcinoma previously removed from her nose. Patient was recently evaluated in the ED on 09/05/17 for concerns of LLQ abdominal pain x 5 days. She does have history of diverticulitis, so a CT scan was performed of the abdomen and pelvis during her visit. CT scan of the abdomen/pelvis showed a stable 23 mm groundglass left lower lobe pulmonary nodule. Comparison CT was abdomen/pelvis film from 07/06/17 for similar complaint of LLQ pain. At this time would like to move forward with bronchoscopy for bronchial lavage to help rule out atypical infections. CT abdomen 04/22/2010 No signs right lower lobe ground-glass nodule CT of the lung 01/15/2011 In retrospect possible tracks on visceral pleura and mild infiltrate CT abdomen 05/14/2016 Mild infiltrative process appreciated in retrospect CT of the abdomen 07/06/2017 22 mm ground-glass nodule CT abdomen 09/05/2017 23 mm ground-glass nodule Review of Systems Constitutional: negative. Eyes: negative. ENT: negative. Cardiovascular: negative. Respiratory: negative. Gastrointestinal: negative. Genitourinary: negative. Musculoskeletal: negative. Integumentary: negative. Neurological: negative. Psychiatric: negative. Endocrine: negative. Hematologic/Lymphatic: negative. Past Medical History 1. Acute cholecystitis 2. History of Cervical polyp 3. History of Change In The Stool Color 4. History of Depression 5. History of basal cell carcinoma 6. History of dyspareunia 7. History of vaginitis 8. History of Menopausal symptoms Surgical History 1. History of Cholecystectomy Laparoscopic 2. History of Oral Surgery Tooth Extraction Family History 1. Family history of Heart Disease 2. Family history of Hypertension 3. Family history of Stroke Syndrome 4. Family history of Breast Cancer 5. Family history of Breast Cancer Social History Being A Social Drinker Denied: History of Current Smoker Exercising Regularly Marital History - Currently Never smoker No illicit drug use Current Meds 1. Aspirin TABS; 2. Zoloft 100 MG Oral Tablet; TAKE TABLET Daily TDD:200 mg; Allergies 1. No Known Drug Allergies Immunizations Influenza --- Series1: 03-Oct-2017 Vital Signs Blood Pressure: 124 / 74, RUE, Sitting Height: 5 ft 5 in Weight: 161 lb 5 oz BMI Calculated: 26.84 BSA Calculated: 1.81 O2 Saturation: 97, RA Temperature: 98.7 F Respiration: 18 Heart Rate: 78 Physical Exam Constitutional General appearance: No acute distress, well appearing and well nourished. Eyes Conjunctiva and lids: No swelling, erythema or discharge. Pupils and irises: Equal, round and reactive to light. Ears, Nose, Mouth, and Throat External inspection of ears and nose: Normal. Otoscopic examination: Tympanic membranes translucent with normal light reflex. Canals patent without erythema. Oropharynx: Normal with no erythema, edema, exudate or lesions. Pulmonary Respiratory effort: No increased work of breathing or signs of respiratory distress. Auscultation of lungs: Clear to auscultation. Cardiovascular Palpation of heart: Normal PMI, no thrills. Auscultation of heart: Normal rate and rhythm, normal S1 and S2, without murmurs. Examination of extremities for edema and/or varicosities: Normal. Abdomen Abdomen: Non-tender, no masses. Liver and spleen: No hepatomegaly or splenomegaly. Lymphatic Palpation of lymph nodes in neck: No lymphadenopathy. Musculoskeletal Gait and station: Normal. Digits and nails: Normal without clubbing or cyanosis. Inspection/palpation of joints, bones, and muscles: Normal. Skin Skin and subcutaneous tissue: Normal without rashes or lesions. Neurologic Cranial nerves: Cranial nerves 2-12 intact. Reflexes: 2+ and symmetric. Sensation: No sensory loss. Psychiatric Orientation to person, place, and time: Normal. Mood and affect: Normal.
--- NOTE | 2017-10-17 09:04 | History & Physical Bridge Note ---
H&P Re-Evaluation Bridge Note: I have examined the patient, reviewed the History & Physical and in the interval since the performance of the History & Physical I have noted the following changes of clinical significance: No changes noted
--- NOTE | 2017-10-17 09:04 | Procedure Note ---
Pre-Mod Sedation Assessment General Date of Moderate Sedation: Oct 17, 2017. Vital Signs: Vital Signs Past 12 Hours Date Time Temp Pulse Resp B/P (MAP) Pulse Ox O2 Delivery O2 Flow Rate FiO2 10/17/17 08:03 36.7 73 16 115/66 (82) 97 Room Air Review Cardiovascular: regular rate, rhythm, no edema, no gallop, no JVD, no murmur Abdomen: normal bowel sounds, non tender, soft, no organomegaly, no pulsatile mass, normal rectal exam Lungs: chest non-tender, lungs clear, normal breath sounds Pre-Sedation Airway Assessment Oral Cavity: WNL Able to Visualize Vocal Cords: Yes Short Thick Neck: No Hx of Sleep Apnea: No Smoking Status: Never Smoker Mallampati Classification: Class II ASA Classification: Class I Procedure Planning Contraindications-for Mod Sed: None Yes Notes The planned sedation has been discussed with the patient and consent obtained. I have identified the patient, determined the appropriateness of sedation and have assessed the patient immediately prior to the procedure. All medicine(s) and interventions are by my order.
--- NOTE | 2017-10-17 10:03 | Discharge Instructions ---
Discharge Instructions Date of Service Oct 17, 2017. Admission Reason for Admission: Ground Glass Opacity Present On Lung Imaging Discharge Discharge Diagnosis / Problem: Ground Glass opacity on lung imaging Discharge Goals Goal(s): Diagnostic testing Activity Recommendations Activity Limitations: per Instructions/Follow-up section . Instructions / Follow-Up Instructions / Follow-Up Patient sent to ED for further evaluation of post-operative chest pain and bradycardia. Being admitted for Observation. Follow up in Pulmonary clinic after discharge. Current Hospital Diet Patient's current hospital diet: Discharge Diet Recommended Diet: Regular Diet Pending Studies Studies pending at discharge: yes List of pending studies: Patient being admitted. Medical Emergencies . Who to Call and When: Medical Emergencies: If at any time you feel your situation is an emergency, please call 911 immediately. . Non-Emergent Contact Non-Emergency issues call your: Primary Care Provider . . "Provider Documentation" section prepared by Evon Bills. . VTE Core Measure Inpt VTE Proph given/why not?: Treatment not indicated
--- NOTE | 2017-10-17 10:05 | Bronchoscopy Procedure Note ---
Bronchoscopy Procedure Note Procedure: Bronchoscopy, conscious sedation, bronchial lavage left lower lobe Consent: Obtained through the patient placed into the chart Pre-procedural diagnosis: Left lower lobe groundglass nodule Post-procedural diagnosis: Left lower lobe Start time: 944 End time: 957 Total time: 13 minutes Analgesia: 2% liquid lidocaine: Via nebulizer 4% gel lidocaine: Via right naris 2% liquid lidocaine: Via bronchoscopy Sedation: Versed IV: 3mg Fentanyl IV: 75 g Procedure: The POW video bronchoscope was used for this procedure and passed down through the right naris Right naris/posterior naris/posterior oropharynx: Anatomically within normal limits Glottis: Anatomically within normal limits Vocal cords: Proper abduction and abduction, anatomically within normal limits Subglottis/trachea/Amparo: Anatomically within normal limits Right bronchial tree: Right mainstem bronchus: Anatomically within normal limits Right upper lobe: Anatomically within normal limits Bronchus intermedius: Anatomically within normal limits Right middle lobe: Anatomically within normal limits Right lower lobe: Anatomically within normal limits Findings: Diffuse submucosal fatty infiltrates Left bronchial tree: Left mainstem bronchus: Anatomically within normal limits Left upper lobe: Anatomically within normal limits Lingula: Anatomically within normal limits Left lower lobe: Easy collapsibility on expiration of the medial aspect left lower lobe basal pyramids Findings: Diffuse submucosal fatty infiltrates Bronchial alveolar lavage: Left lower lobe medial subsegment EBL: None Complications: None Follow-up: [facility]
--- NOTE | 2017-10-17 10:05 | Procedure Note ---
Post-Moderate Sedation Plan General Date of Moderate Sedation Oct 17, 2017. Vital Signs: Vital Signs Past 12 Hours Date Time Temp Pulse Resp B/P (MAP) Pulse Ox O2 Delivery O2 Flow Rate FiO2 10/17/17 09:21 36.4 77 18 115/66 97 Room Air 10/17/17 08:03 36.7 73 16 115/66 (82) 97 Room Air Review - Discharge Plan Post Moderate Sedation Plan: On clinical assessment, the patient appears to have tolerated the conscious sedation without complications. Patient is recovering as anticipated. Patient will continue to be monitored by nursing and may be discharged when conscious sedation discharge criteria are met.
[2017-10-17 11:16] LABS: ISTAT ARTERIAL BLOOD GAS HCO3 21 meq/L (19-24); ISTAT ARTERIAL BLOOD GAS PCO2 25 mmHg (35-46); ISTAT ARTERIAL BLOOD GAS PO2 134 mmHg (80-95); ISTAT ARTERIAL BLOOD GAS pH 7.55 (7.35-7.45); ISTAT CARBON DIOXIDE 22 mEq/l (24-31); ISTAT HEMATOCRIT 34 % (37-47); ISTAT HEMOGLOBIN 11.6 g/dl (12.0-16.0); ISTAT SODIUM 140 mEq/L (135-144)
--- NOTE | 2017-10-17 11:50 | Bronchoscopy Procedure Note ---
Bronchoscopy Procedure Note Procedure: Bronchoscopy, Consent: Obtained through the patient placed into the chart Pre-procedural diagnosis: Chronic tracheostomy Post-procedural diagnosis: Chronic tracheostomy Start time: 1130 End time: 1138 Total time: minutes Analgesia: 2% liquid lidocaine: Via nebulizer 4% gel lidocaine: Via right naris 2% liquid lidocaine: Via bronchoscopy Sedation: Versed IV: 0mg Fentanyl IV: 0 g Procedure: The Olympus video bronchoscope was used for this procedure and passed down through the right naris Passed down through the ostomy site Ostomy intact no signs of active infection mild granulation at the distal and prior to its insertion into the trachea Vocal cords/subglottis: Subglottic region and posterior view with the vocal cords was within normal limits Trachea/Amparo: Anatomically within normal limits Right bronchial tree: Right mainstem bronchus: Anatomically within normal limits Right upper lobe: Anatomically within normal limits Bronchus intermedius: Anatomically within normal limits Right middle lobe: Anatomically within normal limits Right lower lobe: Anatomically within normal limits Findings: No significant findings noted Left bronchial tree: Left mainstem bronchus: Anatomically within normal limits Left upper lobe: Anatomically within normal limits Lingula: Anatomically within normal limits Left lower lobe: Anatomically within normal limits Findings: No significant findings noted Bronchial alveolar lavage: Not performed EBL: None Complications: None Follow-up: [facility]
--- NOTE | 2017-10-17 12:00 | History and Physical ---
History & Physical Date & Time of Service: Oct 17, 2017 at 11:54 Chief Complaint: Ground Glass Opacity Present On Lung Imaging Primary Care Physician: Chris Connelly M.D. History of Present Illness Source: patient This is a 57 yo F with PMHx of pulmonary nodules, basal cell carcinoma lesion of the nose s/p removal, hx of diverticulitis in Aug 2017 who presented for routine bronchoscopy in same day surgery for evaluation of ground-glass nodule/ atypical infection of the LLL by Dr. Oliva on 10/17. Pt underwent the procedure with conscious sedation with fentanyl and versed and tolerated it without difficulty. While in the post op bay the pt developed chest pain in the lower substernal region, she began dry heaving and felt as if she were to pass out. She reports feeling numbness and tingling into her hands and feet at that time. The The patient developed episode of bradycardia into the 30s, and BP dropped acutely to 70/40. A code purple was called and the patient was taken acutely to the ER for intervention. The patient is being admitted directly to the hospitalist service at this time for observation. At this time the patient feels well, is fully awake and able to provide some history. She currently denies any chest pain at all. Pt reports she has had a chest pain like this in the past where she has been eating poorly. Pt notes she has taken a 1 week break from weight watchers and has been eating fast food like [employer] and stromboli, which she typically does not. Pt is not on any antacid medications. Of note, pt denies environmental exposures such as secondhand smoke, fumes, asbestos. notes they recently tested radon and the level in their home is 4x the limit so are planning on installing a pump. While in the ER vitals have remained normal. Labs are in process, including cardiac biomarkers EKG was reviewed and appears to be in NSR without evident block. Past Medical/Surgical History Medical Problems: (1) Chemosis of conjunctiva Status: Resolved (2) Corneal abrasion Status: Resolved (3) Diverticulitis Status: Resolved (4) Diverticulosis Colon (W/O Ment Of Hemorrhage) Status: Chronic Acute cholecystitis History of Cervical polyp Depression basal cell carcinoma of the nose History of dyspareunia History of vaginitis History of Menopausal symptoms Surgical Problems: (1) History of cholecystectomy Status: Resolved Left bronchoscopy and lavage Family History Heart Disease Hypertension Stroke Syndrome Breast Cancer Social History Smoking Status: Never Smoker Smokeless Tobacco Use: No Alcohol Use: socially Drug Use: none Marital Status: Housing status: lives with family Occupational Status: retired (meteorologist) Immunizations History of Influenza Vaccine: Yes Influenza Vaccine Date: Sep 23, 2012 History of Tetanus Vaccine?: Yes Tetanus Immunization Date: Nov 26, 2009 History of Pneumococcal: Unknown History of Hepatitis B Vaccine: Unknown Multi-Drug Resistant Organisms History of MDRO: No Allergies Coded Allergies: No Known Allergies (Unverified , 10/17/17) Home Medications Scheduled Multivitamin (Multivitamin), 1 TAB PO DAILY Sertraline Hcl (Zoloft), 50 MG PO DAILY Review of Systems Constitutional: No fever, No chills, No sweats, No weight loss, No fatigue Eyes: No worsening of vision, No redness ENT: No nasal symptoms, No sore throat, No tinnitus Respiratory: No cough, No sputum, No wheezing, No shortness of breath, No dyspnea on exertion Cardiovascular: No chest pain, No orthopnea, No edema, No palpitations Abdomen: No pain, No nausea, No vomiting, No diarrhea, No constipation Musculoskeletal: No joint pain, No swelling Neurologic: No weakness, No numbness/tingling Psychiatric: No depression symptoms, No anxiety Endocrine: No fatigue Integumentary: No rash, No itch Physical Exam Vital Signs Date Time Temp Pulse Resp B/P (MAP) Pulse Ox O2 Delivery O2 Flow Rate FiO2 10/17/17 10:45 36.6 39 14 72/38 99 Nasal Cannula 6 10/17/17 10:30 36.6 75 20 124/77 99 Nasal Cannula 4.0 10/17/17 10:15 36.6 74 20 119/76 98 Nasal Cannula 4.0 10/17/17 10:05 80 21 118/83 97 Nasal Cannula 4.0 10/17/17 10:00 71 22 111/72 98 Mask 8.0 10/17/17 09:55 72 14 127/83 94 Mask 8.0 10/17/17 09:50 67 17 95/81 98 Mask 8.0 10/17/17 09:34 75 21 106/66 100 Mask 8.0 10/17/17 09:21 36.4 77 18 115/66 97 Room Air 10/17/17 08:03 36.7 73 16 115/66 (82) 97 Room Air General Appearance: WD/WN, no apparent distress Head: normocephalic, atraumatic Eyes: PERRL, EOMI ENT: hearing grossly normal, pharynx normal Neck: no adenopathy, no JVD Respiratory/Chest: chest non-tender, lungs clear, no respiratory distress, no accessory muscle use, + pertinent finding (on 4L via NC with adequate sats) Cardiovascular: regular rate, rhythm, no JVD, no murmur, normal peripheral pulses Abdomen/GI: normal bowel sounds, non tender, soft, + pertinent finding (no epigastric pain ) Back: normal inspection, no CVA tenderness Extremities/Musculoskelatal: no calf tenderness, no pedal edema Neurologic/Psych: alert, normal mood/affect, oriented x 3 Skin: normal color, warm/dry Diagnostics Laboratory Results Results Past 24 Hours Test 10/17/17 08:26 10/17/17 10:49 10/17/17 11:02 10/17/17 11:41 Range/Units Bedside Glucose 99 70-90 mg/dl Bedside Hemoglobin 11.6 12.0-16.0 g/dl Bedside Hematocrit 34 37-47 % Bedside Blood Gas pH (LAB) 7.55 7.35-7.45 Bedside Blood Gas pCO2 (LAB) 25 35-46 mmHg Bedside Blood Gas pO2 (LAB) 134 80-95 mmHg Bedside Blood Gas HCO3 (LAB) 21 19-24 meq/L Bedside Blood Gas Total CO2 22 24-31 mEq/l Bedside Blood Gas Base Excess (LAB) -1.0 -9-1.8 meq/L Bedside Blood Gas O2 Saturation 99.0 90-95 % Bedside Sodium 140 135-144 mEq/L Bedside Potassium 3.9 3.3-5.0 mEq/L Creatine Kinase MB Ratio 0-3.0 Microbiology Results 10/17/17 Fungal Smear, Received Pending 10/17/17 Fungal Culture, Received Pending 10/17/17 Acid Fast Stain, Received Pending 10/17/17 Mycobacterial Culture, Received Pending 10/17/17 Gram Stain, Received Pending 10/17/17 Bronchoalveolar Lavage Culture, Received Pending Diagnostic Radiology CHEST ONE VIEW PORTABLE CLINICAL HISTORY: Chest pain post bronchoscopy. COMPARISON STUDY: Chest CT October 08, 2017. FINDINGS: Lung volumes are normal. No pneumothorax or pleural effusion is present. No consolidation is identified. Pulmonary vascularity is normal. Cardiomediastinal silhouette is normal. Mild left lower lung retrocardiac opacity at site of airspace opacity shown on exam of October 08, 2017 is present. IMPRESSION: 1. No pneumothorax. 2. Mild left lower lung airspace opacity, as shown on CT of October 08, 2017. Electronically signed by: Issa Molina M.D. 10/17/2017 11:58 AM Dictated Date/Time: 10/17/2017 11:53 AM Impression Assessment and Plan This is a 57 yo F with PMHx of pulmonary nodules, basal cell carcinoma lesion of the nose s/p removal, hx of diverticulitis in Aug 2017 who presented for routine bronchoscopy in same day surgery for evaluation of ground-glass nodule/ atypical infection of the LLL by Dr. Oliva on 10/17. Pt underwent the procedure with conscious sedation with fentanyl and versed and tolerated it without difficulty. While in the post op bay the pt developed chest pain in the lower substernal region, she began dry heaving and felt as if she were to pass out. She reports feeling numbness and tingling into her hands and feet at that time. The The patient developed episode of bradycardia into the 30s, and BP dropped acutely to 70/40. A code purple was called and the patient was taken acutely to the ER for intervention. The patient is being admitted directly to the hospitalist service at this time for observation. S/p episode of chest pain after Bronchoscopy and LLL lavage - Cardiac enzyme in process, trend x 3 total - EKG reviewed and showing NSR without acute signs of ischemia of ST wave inversions - cardiology has seen the patient - appreciate recs - Chest is nontender with palpation at time of my eval. - Etiology sounds vasovagal with bronchoscopy and tolerating the procedure itself without difficulty. Possible that this was bronchospasm as well. - Pt reports hx of eating poorly x 1 week and notes she has had similar episode of chest pain in the past when she does not eat well. - Will add antacid with protonix for possible indigestion - health eating habits will need to be encouraged prior to discharge. - CXR negative - no pneumothorax. LLL ground glass lung nodules - s/p bronch: lavage of the left lobe only - cytology and microbiology sent as there is concern for malignancy with basal cell carcinoma lesion of the nose hx. - CT scan revealed these nodules incidentally when pt was evaluated for diverticulitis in June and August 2017. Prior imaging did not have nodularities. - Pulmonology to follow up with results as an outpatient Depression - Continue Zoloft 75 mg DVT ppx: lovenox 40 mg subq CODE STATUS: FULL CODE Disposition: From home, lives with Level of Care Telemetry Resuscitation Status FULL RESUSCITATION VTE Prophylaxis VTE Risk Assessment Done? Y/N: Yes Risk Level: High Given or contraindicated: Enoxaparin (Lovenox)SQ, Treatment not indicated
== END | disposition home or self-care (01) ==
LOC: C.ACU 07:33
PROVIDERS: ATTEND Internal Medicine Critical Care Medicine
DX: R91.8 Other nonspecific abnormal finding of lung field (principal); R91.1 Solitary pulmonary nodule; Z85.820 Personal history of malignant melanoma of skin; Z90.49 Acquired absence of other specified parts of digestive tract; Z82.49 Family history of ischemic heart disease and other diseases of the circulatory system; Z82.3 Family history of stroke; Z80.3 Family history of malignant neoplasm of breast

== ENCOUNTER → 2017-11-21 | Outpatient (CLI) | payer BC ==
[~2017-11-21] MED LIST changes: -AMOX1TAB43 PO; -SERT100T PO; +SERT50TA PO
== END | disposition home or self-care (01) ==
LOC: C.PAPS 11:26
PROVIDERS: ATTEND Obstetrics & Gynecology
DX: Z01.419 Encounter for gynecological examination (general) (routine) without abnormal findings (principal)

== ENCOUNTER → 2018-06-11 | Outpatient (CLI) | payer BC ==
--- NOTE | 2018-06-12 14:55 | MAMMOGRAPHY REPORT ---
BILATERAL DIGITAL SCREENING MAMMOGRAM TOMOSYNTHESIS WITH CAD: 06/11/2018 CLINICAL HISTORY: Routine screening. Patient has no complaints. TECHNIQUE: The study was acquired using full field digital technology and interpreted from soft copy. Breast tomosynthesis in addition to standard 2D mammography was performed. Current study was also ev aluated with a Computer Aided Detection (CAD) system. COMPARISON: Comparison is made to exams dated: 06/08/2017 mammogram, 06/06/2016 mammogram, 06/03/2015 m ammogram, 06/02/2014 mammogram, 03/17/2013 mammogram, and 03/08/2012 mammogram - [facility]ter. BREAST COMPOSITION: The tissue of both breasts is heterogeneously dense, which may obscure small mass es. FINDINGS: The parenchymal pattern is unchanged. No developing mass, architectural distortion or cluster of susp icious microcalcifications is seen in either breast. IMPRESSION: ACR BI-RADS CATEGORY 2: BENIGN There is no mammographic evidence of malignancy. A 1 year screening mammogram is recommended.( [id number]) The patient will receive written notification of the results. Some breast cancers are not detected with mammography. A negative mammographic report should not mariana y biopsy if a clinically suggestive mass is present. Delisa Humphreys M.D. ay/:06/11/2018 16:52:13 Tile Mason: RT Sisi(R)(M), [facility] letter sent: Normal 1/2 BI-RADS Code: ACR BI-RADS Category 2: Benign
== END | disposition home or self-care (01) ==
LOC: C.MAMM 10:17
PROVIDERS: ATTEND Obstetrics & Gynecology
DX: Z12.31 Encounter for screening mammogram for malignant neoplasm of breast (principal)